=== PATIENT | male | born 1985 | race Caucasian/White ===

== ENCOUNTER 2020-03-21 03:44 | Emergency (ER) | payer OTHER ==
[~2020-03-21] VITALS: Ht 175.3 cm; Wt 63.5 kg
[~2020-03-21 03:44] MED LIST: LEXAPRO10 MG PO
[2020-03-21 03:51] VITALS: Ht 175.3 cm; Wt 63.5 kg
[2020-03-21 06:46] VITALS: BP 120/67
== END 2020-03-21 06:46 | disposition home or self-care (01) ==
LOC: ED 03:44
DX: R23.4 Changes in skin texture (principal); Z59.0 Homelessness